=== PATIENT | female | born 1975 | race Caucasian/White ===

== ENCOUNTER 2017-08-24 20:18 | Emergency (ER) | payer SELFPAY ==
[2017-08-24 20:50] VITALS: BP 121/62; PULSE 76; RESP 16; TEMP 98.7; O2SAT 99
[2017-08-24 21:39] LABS: HEMATOCRIT 40.6 % (34.0-47.0); MEAN CELL VOLUME 91.2 fl (81.0-99.0); MEAN CORPUSCULAR HEMOGLOBIN 29.7 pg (27.0-31.0); MEAN CORPUSCULAR HGB CONC 32.6 g/dL (33.0-37.0); RED CELL DISTRIBUTION WIDTH 12.6 % (11.5-14.5); WHITE BLOOD COUNT 7.6 K/uL (4.8-10.8)
[2017-08-24 21:55] LABS: ALB/GLOB RATIO 1.4 (1.0-2.1); ALKALINE PHOSPHATASE 65 U/L (38-126); ALT/SGPT 31 U/L (9-52); AST/SGOT 21 U/L (14-36); BILIRUBIN,TOTAL 0.3 mg/dl (0.2-1.3); BLOOD UREA NITROGEN 18 mg/dl (7-17); CALCIUM 9.4 mg/dL (8.4-10.2); CARBON DIOXIDE 25 mmol/L (22-30); CHLORIDE 106 mmol/L (98-107); GFR AFRICAN-AMERICAN > 60; GLUCOSE,RANDOM 89 mg/dL (65-105); POTASSIUM 3.9 MMOL/L (3.6-5.0); SODIUM 140 mmol/l (132-148); TOTAL PROTEIN 7.5 G/DL (6.3-8.2)
--- NOTE | 2017-08-24 22:28 | ED PDOC ---
HPI: Female Pain Time Seen by Provider: 08/24/17 20:54 Chief Complaint (Nursing): Female Genitourinary Chief Complaint (Provider): Vaginal bleeding since 08/02/17 History Per: Patient History/Exam Limitations: no limitations Onset/Duration Of Symptoms: Days Current Symptoms Are (Timing): Still Present Additional Complaint(s): Pt states her menses was regular in the middle of May. Pt states she did not having bleeding again until and has been bleeding ever since. Pt states she had 2 surgeries for removal of fibroids. Pt also reports sharp lower, bilateral back pain. Pt takes motrin but states it is not helping. Past Medical History Reviewed: Historical Data, Nursing Documentation, Vital Signs Vital Signs: Last Vital Signs Temp 98.7 F 08/24/17 20:46 Pulse 76 08/24/17 20:46 Resp 16 08/24/17 20:46 BP 121/62 08/24/17 20:46 Pulse Ox 99 08/24/17 20:46 - Medical History PMH: No Chronic Diseases - Surgical History Surgical History: No Surg Hx - Family History Family History: States: No Known Family Hx - Living Arrangements Living Arrangements: With Family - Social History Current smoker - smoking cessation education provided: No - Home Medications Home Medications: Ambulatory Orders Medication Instructions Recorded Ibuprofen 600 mg PO Q6 PRN #15 tablet 10/08/15 Meclizine [Meclizine*] 25 mg PO TID PRN #21 tab 10/08/15 oxyCODONE/Acetaminophen [Percocet 1 ea PO Q6H PRN #15 tab 08/24/17 5/325 mg Tab] - Allergies Allergies/Adverse Reactions: Allergies Allergy/AdvReac Type Severity Reaction Status Date / Time No Known Allergies Allergy Verified 10/08/15 12:43 Review of Systems ROS Statement: Except As Marked, All Systems Reviewed And Found Negative Constitutional: Negative for: Fever, Chills Genitourinary Female: Positive for: Vaginal Bleeding, Other (Low back pain ). Negative for: Dysuria Physical Exam - Reviewed Nursing Documentation Reviewed: Yes Vital Signs Reviewed: Yes - Physical Exam Appears: Positive for: Well, Non-toxic, No Acute Distress Head Exam: Positive for: ATRAUMATIC, NORMAL INSPECTION, NORMOCEPHALIC Skin: Positive for: Normal Color, Warm, DRY Eye Exam: Positive for: Normal appearance ENT: Positive for: Normal ENT Inspection Neck: Positive for: Normal, Painless ROM Cardiovascular/Chest: Positive for: Regular Rate, Rhythm Respiratory: Positive for: CNT, Normal Breath Sounds Gastrointestinal/Abdominal: Positive for: Normal Exam, Bowel Sounds, Soft. Negative for: Tenderness Back: Positive for: Normal Inspection Extremity: Positive for: Normal ROM Neurologic/Psych: Positive for: Alert, Oriented - Laboratory Results Result Diagrams: 08/24/17 21:21 08/24/17 21:21 - ECG O2 Sat by Pulse Oximetry: 99 Pulse Ox Interpretation: Normal Medical Decision Making Medical Decision Making: Labs normal. (+) fibroids on US - Discussed follow-up with TRACTOR OPERATOR HELPER and vitamins. Disposition - Clinical Impression Clinical Impression: Uterine fibroid - Patient ED Disposition Is Patient to be Admitted: No Counseled Patient/Family Regarding: Diagnosis, Need For Followup, Rx Given - Disposition [facility]errals: [facility]Outside] [facility] Disposition: Routine/Home Disposition Time: 23:12 Condition: GOOD Prescriptions: oxyCODONE/Acetaminophen [Percocet 5/325 mg Tab] 1 ea PO Q6H PRN #15 tab PRN Reason: Pain, Severe (8-10) Instructions: Uterine Fibroids (ED) Forms: [employer] (Sri Lankan)
--- NOTE | 2017-08-24 22:58 | US ---
EXAM: US Pelvis, Transvaginal CLINICAL HISTORY: 41 years old, female; Signs and symptoms; Menstruation abnormalities; Irregular menstruation; Additional info: Vaginal bleeding x 1 month, history fibroid surger TECHNIQUE: Real-time transvaginal pelvic ultrasound (complete) with image documentation. Transvaginal imaging was used for better evaluation of the endometrium and adnexa. COMPARISON: US - PELVIS ULTRASOUND 2015-10-08 14:07 FINDINGS: Uterus/cervix: Uterus measures 8.7 x 4.5 x 6.4 cm in size. Few uterine masses, largest measuring 3.5 x 3.0 x 3.3 cm. Nabothian cyst. Endometrium: 0.6 cm in thickness. Right ovary: 1.8 x 1.0 x 2.1 cm in size. No mass. Small follicles. Normal flow. Left ovary: 1.7 x 1.9 x 2.1 cm in size. No mass. Small follicles. Normal flow. Free fluid: No significant free fluid. Bladder: Empty bladder which cannot be evaluated with this probe. IMPRESSION: 1. Probable fibroid uterus. 2. Incidental/non-acute findings are described above.
== END 2017-08-24 23:31 | disposition home or self-care (01) ==
LOC: H.ER 20:18
DX: D25.9 Leiomyoma of uterus, unspecified (principal); Z36.3 Encounter for antenatal screening for malformations

== ENCOUNTER 2018-02-05 15:52 | Emergency (ER) | payer SELFPAY ==
[2018-02-05 15:58] VITALS: O2SAT 99
[2018-02-05] MEDS ORDERED: Oxycodone/Acetaminophen 5/325 mg Tab PO STA (16:36)
[2018-02-05] MEDS ORDERED: Oxycodone/Acetaminophen 5/325 mg Tab ONE (16:46)
--- NOTE | 2018-02-05 16:49 | ED PDOC ---
HPI: Back Time Seen by Provider: 02/05/18 16:35 Chief Complaint (Nursing): Back Pain Chief Complaint (Provider): Back pain History Per: Patient History/Exam Limitations: no limitations Onset/Duration Of Symptoms: Other (x1 month) Current Symptoms Are (Timing): Still Present Additional Complaint(s): 42 year old female presented to ED complaining of back pain for a year but has been worsening this month. Patient reports intermittent shooting pain down her left leg to her left heel. Patient tried naproxen without relief. PCP: none provided Past Medical History Reviewed: Historical Data, Nursing Documentation, Vital Signs Vital Signs: Last Vital Signs Temp 98 F 02/05/18 15:55 Pulse 74 02/05/18 15:55 Resp 18 02/05/18 15:55 BP 131/71 02/05/18 15:55 Pulse Ox 99 02/05/18 15:55 - Medical History PMH: No Chronic Diseases - Surgical History Surgical History: No Surg Hx - Family History Family History: States: Unknown Family Hx - Home Medications Home Medications: Ambulatory Orders Medication Instructions Recorded Ibuprofen 600 mg PO Q6 PRN #15 tablet 10/08/15 Meclizine [Meclizine*] 25 mg PO TID PRN #21 tab 10/08/15 oxyCODONE/Acetaminophen [Percocet 1 ea PO Q6H PRN #15 tab 08/24/17 5/325 mg Tab] Methylprednisolone [Medrol Dose 4 mg PO DAILY #21 mg 02/05/18 Pack (21 tabs)] diaZEpam [Valium] 5 mg PO Q6 PRN #5 tab 02/05/18 - Allergies Allergies/Adverse Reactions: Allergies Allergy/AdvReac Type Severity Reaction Status Date / Time No Known Allergies Allergy Verified 02/05/18 15:55 Review of Systems ROS Statement: Except As Marked, All Systems Reviewed And Found Negative Musculoskeletal: Positive for: Back Pain, Leg Pain (left ) Physical Exam - Reviewed Nursing Documentation Reviewed: Yes Vital Signs Reviewed: Yes - Physical Exam Appears: Positive for: Non-toxic, No Acute Distress Head Exam: Positive for: ATRAUMATIC, NORMAL INSPECTION, NORMOCEPHALIC Skin: Positive for: Normal Color, Warm, Dry Eye Exam: Positive for: Normal appearance Neck: Positive for: Normal, Painless ROM Back: Positive for: Other (left para lumbar tenderness) Extremity: Positive for: Normal ROM Neurologic/Psych: Positive for: Alert, Oriented - ECG O2 Sat by Pulse Oximetry: 99 (RA) Pulse Ox Interpretation: Normal - Progress ED Course And Treament: xry l spine: no acute disease noted toradol 30 mg IM percocet 5/325 mg x 1 dose Medical Decision Making Medical Decision Making: Initial Impression: back pain Initial Plan: ED urine Toradol 30mg IM Oxycodone 1tab PO X-ray LS spine AP Scribe Attestation: Documented by Jose Guillen acting as a scribe for Melissa BINGHAM. Provider Scribe Attestation: All medical record entries made by the Scribe were at my direction and personally dictated by me. I have reviewed the chart and agree that the record accurately reflects my personal performance of the history, physical exam, medical decision making, and the department course for this patient. I have also personally directed, reviewed, and agree with the discharge instructions and disposition. Disposition - Clinical Impression Clinical Impression: Sciatica - Patient ED Disposition Is Patient to be Admitted: No - Disposition Referrals: [facility] [Outside] Disposition: Routine/Home Disposition Time: 17:05 Condition: FAIR Prescriptions: diaZEpam [Valium] 5 mg PO Q6 PRN #5 tab PRN Reason: Pain, Moderate (4-7) Methylprednisolone [Medrol Dose Pack (21 tabs)] 4 mg PO DAILY #21 mg Instructions: Sciatica (DC) Forms: [employer] (Gabonese), [facility] ED School/Work Excuse
[2018-02-05 17:10] VITALS: BP 130/78; PULSE 82; RESP 16; TEMP 98.4
--- NOTE | 2018-02-05 17:15 | RAD ---
PROCEDURE: Radiographs of the Lumbar Spine. HISTORY: BACK STRAIN COMPARISON: No prior. FINDINGS: BONES: Normal alignment. No listhesis. No fracture. DISC SPACES: Unremarkable. OTHER FINDINGS: None. IMPRESSION: Unremarkable radiographs of the lumbar spine. Concordant results with the preliminary interpretation rendered by the emergency department physician procedure.
== END 2018-02-05 17:09 | disposition home or self-care (01) ==
LOC: H.ER 15:52
DX: M54.32 Sciatica, left side (principal)
CPT/HCPCS: 72100; 81025; 96372; 99283; J1885

== ENCOUNTER 2019-01-18 22:47 | Emergency (ER) | payer MEDICAID, SELFPAY ==
[2019-01-18 23:07] VITALS: BP 114/69; PULSE 77; RESP 19; TEMP 98; O2SAT 100
[2019-01-19 00:38] LABS: BASO # 0.1 K/uL (0.0-0.2); BASO % 0.7 % (0.0-2.0); EOS # 0.1 K/uL (0.0-0.7); LYMPH # 2.9 K/uL (1.0-4.3); LYMPH % 32.6 % (20.0-40.0); MEAN CELL VOLUME 89.2 fl (81.0-99.0); MEAN CORPUSCULAR HEMOGLOBIN 29.7 pg (27.0-31.0); MEAN CORPUSCULAR HGB CONC 33.3 g/dL (33.0-37.0); MEAN PLATELET VOLUME 9.5 fl (7.2-11.7); MONO # 0.7 K/uL (0.0-0.8); MONO % 7.6 % (0.0-10.0); NEUT # 5.1 K/uL (1.8-7.0); NEUT % 58.1 % (50.0-75.0); RBC 4.37 Mil/uL (3.80-5.20); RED CELL DISTRIBUTION WIDTH 13.2 % (11.5-14.5); WHITE BLOOD COUNT 8.8 K/uL (4.8-10.8)
[2019-01-19 00:39] LABS: SQUAMOUS EPITHIAL 6 /hpf (0-5); URINE BILIRUBIN NEGATIVE (NEGATIVE); URINE BLOOD NEGATIVE (NEGATIVE); URINE CLARITY SLIGHTY-CLOUDY (Clear); URINE COLOR YELLOW (YELLOW); URINE GLUCOSE (UA) NEG (NEGATIVE); URINE LEUKOCYTE ESTERASE NEG Leu/uL (Negative); URINE PROTEIN 30 mg/dL (NEGATIVE)
[2019-01-19 00:42] LABS: BLOOD UREA NITROGEN 18 mg/dl (7-17); GFR NON-AFRICAN AMERICAN > 60
--- NOTE | 2019-01-19 01:09 | ED PDOC ---
HPI: Back Time Seen by Provider: 01/18/19 23:41 Chief Complaint (Nursing): Back Pain Chief Complaint (Provider): Back Pain History Per: Patient History/Exam Limitations: no limitations Onset/Duration Of Symptoms: Days (x3) Additional Complaint(s): 43 years old female with a history of fibroids and kidney stones presents to ER for evaluation of left sided back pain radiating around to abdomen onset 3 days ago and reports she even feels pain on right lower abdomen. 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 She reports today pain was unbearable that she couldn't work. Patient also reports urinary hesitancy and urine been darker in color. She states she is supposed to be taking Naproxen for back pain but it is not helping her. Patient reports pain feels the same as the back pains she has been having for the last 2 years and sees her PMD for. She also reports the pain is similar to when she had kidney stones 8 years ago. She denies nausea, vomiting, hematuria, changes in bowel movement, leg pain, numbness or tingling. LNMP was in October, due to fibroids. PMD: Mike Mancini Past Medical History Reviewed: Historical Data, Nursing Documentation, Vital Signs Vital Signs: Last Vital Signs Temp 98 F 01/18/19 23:03 Pulse 77 01/18/19 23:03 Resp 19 01/18/19 23:03 BP 114/69 01/18/19 23:03 Pulse Ox 100 01/18/19 23:03 Primary Care Provider: Mike Mancini - Medical History PMH: Kidney Stones Other PMH: Fibroids - Surgical History Other surgeries: Surgery for fibroids - Family History Family History: States: Unknown Family Hx - Home Medications Home Medications: Ambulatory Orders Medication Instructions Recorded Ibuprofen 600 mg PO Q6 PRN #15 tablet 10/08/15 Meclizine [Meclizine*] 25 mg PO TID PRN #21 tab 10/08/15 oxyCODONE/Acetaminophen [Percocet 1 ea PO Q6H PRN #15 tab 08/24/17 5/325 mg Tab] Methylprednisolone [Medrol Dose 4 mg PO DAILY #21 mg 02/05/18 Pack (21 tabs)] diaZEpam [Valium] 5 mg PO Q6 PRN #5 tab 02/05/18 Cyclobenzaprine [Cyclobenzaprine 10 mg PO TID PRN #12 tab 01/19/19 HCl] - Allergies Allergies/Adverse Reactions: Allergies Allergy/AdvReac Type Severity Reaction Status Date / Time No Known Allergies Allergy Verified 01/18/19 23:07 Review of Systems ROS Statement: Except As Marked, All Systems Reviewed And Found Negative Gastrointestinal: Positive for: Abdominal Pain (Left sided, sometimes goes to right side). Negative for: Nausea, Vomiting, Other (Changes in bowel movement) Genitourinary Female: Positive for: Other (Urinary hesitancy). Negative for: Hematuria Musculoskeletal: Positive for: Back Pain (Left sided). Negative for: Leg Pain Neurological: Negative for: Numbness (or tingling) Physical Exam - Reviewed Nursing Documentation Reviewed: Yes Vital Signs Reviewed: Yes - Physical Exam Appears: Positive for: Uncomfortable (mild obvious discomfort) Head Exam: Positive for: ATRAUMATIC, NORMOCEPHALIC Skin: Positive for: Normal Color, Warm, Dry Neck: Positive for: Normal, Painless ROM, Supple Cardiovascular/Chest: Positive for: Regular Rate, Rhythm. Negative for: Murmur Respiratory: Positive for: Normal Breath Sounds. Negative for: Respiratory Distress Gastrointestinal/Abdominal: Positive for: Bowel Sounds (Normal), Soft, Tenderness (diffuse lower abdominal tenderness, primarily suprapubic). Negative for: Mass, Guarding, Rebound Back: Positive for: L CVA Tenderness (Moderate). Negative for: R CVA Tenderness, Vertebral Tenderness, Decreased ROM Extremity: Positive for: Normal ROM. Negative for: Pedal Edema, Deformity, Other (Straight leg raise) Neurological/Psych: Positive for: Awake, Alert, Symmetric/Intact Strength, Oriented (x3), Gait (normal steady), wellness coordinator II-XII (intact). Negative for: Motor/Sensory Deficits - Laboratory Results Result Diagrams: 01/19/19 00:30 01/19/19 00:30 Lab Results: Urine Color Yellow (YELLOW) 01/19/19 00:30 Urine Clarity Slighty-cloudy (Clear) 01/19/19 00:30 Urine pH 6.0 (5.0-8.0) 01/19/19 00:30 Ur Specific [place] 1.028 (1.003-1.030) 01/19/19 00:30 Urine Protein 30 mg/dL (NEGATIVE) 01/19/19 00:30 Urine Glucose (UA) Neg mg/dL (NEGATIVE) 01/19/19 00:30 Urine Ketones Negative mg/dL (NEGATIVE) 01/19/19 00:30 Urine Blood Negative (NEGATIVE) 01/19/19 00:30 Urine Nitrate Negative (NEGATIVE) 01/19/19 00:30 Urine Bilirubin Negative (NEGATIVE) 01/19/19 00:30 Urine Urobilinogen 2.0 mg/dL (0.2-1.0) H 01/19/19 00:30 Ur Leukocyte Esterase Neg Virgen/uL (Negative) 01/19/19 00:30 Urine RBC (Auto) 2 /hpf (0-3) 01/19/19 00:30 Urine Microscopic WBC 3 /hpf (0-5) 01/19/19 00:30 Ur Squamous Epith Cells 6 /hpf (0-5) H 01/19/19 00:30 - ECG O2 Sat by Pulse Oximetry: 100 (RA) Pulse Ox Interpretation: Normal Medical Decision Making Medical Decision Making: Time: 2347 MDM: workup for kidney stones -Toradol [address] SCAN OF THE ABDOMEN AND PELVIS WITHOUT ORAL OR IV CONTRAST. CLINICAL INDICATION: Left flank pain. TECHNIQUE: Axial and reformatted sagittal and coronal images of the abdomen pelvis obtained without IV contrast administration. COMPARISON: 10/08/2015 07:03 PM EST: CT\SD\SR: ABD PELVIS PO IV CONTRAST FINDINGS: Minimal bilateral basilar subsegmental atelectatic pulmonary changes. Normal unenhanced liver. Normal gallbladder and extrahepatic biliary system. Normal unenhanced spleen. Normal pancreas. Normal bilateral adrenal glands. Normal size of the right kidney. There is no right renal mass. There are no right renal calculi. There is no right hydronephrosis. Normal visualized right ureter. Normal size of the left kidney. There is no left renal mass. There are no left renal calculi. There is no left hydronephrosis. Normal visualized left ureter. Normal visualized stomach. Normal small intestine. Uncomplicated diverticulosis of moderate amount of fecal residue in the colon. The appendix is visualized and appears normal. There is no demonstrated peritoneal fluid. Normal abdominal aorta. Normal inferior vena cava. Normal retroperitoneum. Normal urinary bladder. There is no pelvic mass lesion or lymphadenopathy. There is no pelvic fluid. Enlarged fibroid uterus. Normal abdominal wall. Normal osseous structures. IMPRESSION: No CT evidence for acute pathology. Electronically signed on January 19, 2019 2:20:08 AM EDT by: Edis Perez M.D., Certified by ABR, MSK, Neuroradiology 0250 on re eval pt reports pain is improved, better when laying on right side and worse with movement, but better from earlier. CT neg for kidney stones, UA does not show infection, pain is likely muscular pain that she has been dealing with, will give Rx for muscle relaxer - instructed no driving or drinking alcohol Discussed results, diagnosis, treatment, return precautions and f/u with pt who is understanding, in agreement and stable for dc Scribe Attestation: Documented by Mary Burgess, acting as a scribe for ZACHERY Edwards. Provider Scribe Attestation: All medical record entries made by the Scribe were at my direction and personally dictated by me. I have reviewed the chart and agree that the record accurately reflects my personal performance of the history, physical exam, medical decision making, and the department course for this patient. I have also personally directed, reviewed, and agree with the discharge instructions and disposition. Disposition - Clinical Impression Clinical Impression: Low back pain - Patient ED Disposition Is Patient to be Admitted: No Counseled Patient/Family Regarding: Studies Performed, Diagnosis, Need For Followup, Rx Given - Disposition Referrals: Mike Mancini MD [Family Provider] - Disposition: Routine/Home Disposition Time: 02:55 Condition: IMPROVED Additional Instructions: The emergency medical care you received today was directed at your acute symptoms. If you were prescribed any medication, please fill it and take as dir ected. Do not drive or drink alcohol when taking flexeril. It may take several days for your symptoms to resolve. Return to the Emergency Department if your symptoms worsen, do not improve, or if you have any other problems. Please contact your doctor in 2 days for re-evaluation and follow up / or call one of the physicians/clinics you have been referred to that are listed on the Patient Visit Information form that is included in your discharge packet. Bring any paperwork you were given at discharge with you along with any medications you are taking to your follow up visit. Our treatment cannot replace ongoing medical care by a primary care provider (PCP) outside of the emergency department. Prescriptions: Cyclobenzaprine [Cyclobenzaprine HCl] 10 mg PO TID PRN #12 tab PRN Reason: muscle relaxation Instructions: Low Back Pain in Adults Forms: [email or web address] (Brazilian), [facility] ED School/Work Excuse Print Language: ICELANDIC - POA Present On Arrival: None
--- NOTE | 2019-01-19 13:06 | CT ---
Date of service: 01/19/2019 PROCEDURE: CT abdomen pelvis. HISTORY: Left flank pain kidney stone COMPARISON: The comparison made with prior CT scan abdomen and pelvis dated 10/08/2015. TECHNIQUE: Contiguous axial images of the abdomen and pelvis performed without oral or intravenous contrast material. Additional 2D sagittal and coronal reformats generated. Radiation dose: Total exam DLP = 519.79 mGy-cm. This CT exam was performed using one or more of the following dose reduction techniques: Automated exposure control, adjustment of the mA and/or kV according to patient size, and/or use of iterative reconstruction technique. FINDINGS: LOWER THORAX: Heart size within range of normal. No significant pericardial effusion. Minimal passive/dependent type atelectasis both posterior lower lung echavarria right greater than left. No effusion or basilar pneumothorax. LIVER: Liver exhibits normal size and attenuation pattern without mass collection or calcification. GALLBLADDER AND BILE DUCTS: Gallbladder is incompletely distended. No evidence of intraluminal gallbladder calculi. PANCREAS: Unremarkable. No mass. No ductal dilatation. SPLEEN: Unremarkable. No splenomegaly. ADRENALS: Mildly enlarged left adrenal gland. KIDNEYS AND URETERS: Kidneys demonstrate relatively symmetric size. No evidence of nephrolithiasis or hydronephrosis. BLADDER: Urinary bladder is incompletely distended which in part accounts for slight thick-walled appearance. Correlation with urinalysis recommended to exclude cystitis. No evidence of intraluminal urinary bladder calculi REPRODUCTIVE: Uterine fibroids are again noted however a very large anterior uterine body fibroid is no longer visible and presumably has been removed. A 2nd large mass lesion in the right abdomen which may have been contiguous with the aforementioned fibroid (large dumbbell lesion) seen on prior exam also no longer visible APPENDIX: Normal appendix. BOWEL: Evaluation of the bowel is somewhat limited due to incomplete opacification. The stomach is incompletely distended with food debris liquid and air. No evidence of acute mechanical small bowel obstruction. Moderate amount of stool seen seen throughout the ascending and transverse colon consistent with fecal retention/constipation. PERITONEUM: Unremarkable. No fluid collection. No free air. LYMPH NODES: Unremarkable. No enlarged lymph nodes. VASCULATURE: Unremarkable. No aortic aneurysm. No aortic atherosclerotic calcification or mural plaque present. BONES: No fracture or destructive lesion. OTHER FINDINGS: None. IMPRESSION: The uterus remains enlarged and somewhat bulky consistent with residual uterine fibroids however a massive presumed anterior body uterine fibroid has been removed. A 2nd similar mass lesion in the right abdomen which may have been contiguous with the larger lesion also not visible and presumably has been removed as well. Clinical correlation with history recommended. Mildly enlarged left adrenal gland Findings consistent with constipation.
== END 2019-01-19 03:07 | disposition home or self-care (01) ==
LOC: H.ER 22:47
DX: M54.5 Low back pain (principal); Z87.442 Personal history of urinary calculi
CPT/HCPCS: 74176; 80048; 81003; 81025; 85025; 87086; 96374; 99283; J1885